=== PATIENT | male | born 1935 | race Caucasian/White ===

== ENCOUNTER 2020-12-05 12:13 | Outpatient (REF) | payer MEDICARE, SELFPAY ==
--- NOTE | 2020-12-05 16:00 | MHC.AU.P13 ---
Adult Audiological Evaluation Date of Visit: 12/05/20 Reason for Appointment: Audiological evaluation due to concern for decreased hearing. Patient notes that he's not hearing as well, especially from the right ear. He denies any changes to his medical history. 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 Ear History: Recent Ear Drainage: Right Ear History of Ear Wax Buildup: Both Ears Bothersome Tinnitus/Ringing/Noises in Ears: Both Ears Blocked/Full Sensation in Ear(s): Right Ear Medical History: Medical History: Headache, High Blood Pressure Hearing Instrument History- Right Ear: Executor Of Estate: [employer] Model: AudThe Smart Baker M50-13T Serial Number: [id number] Battery Size: 13 Repair Warranty: 02/26/2023 Loss and Damage Warranty: 02/26/2023 Dispensed By: [facility] Date of Fittin12/11/2019 Hearing Instrument History- Left Ear: Executor Of Estate: [employer] Model: [employer]vo.comeDiet TV M50-13T Serial Number: [id number] Battery Size: 13 Warranty: 02/26/2023 Loss and Damage Warranty: 02/26/2023 Dispensed By: [facility] Date of Fittin12/11/2019 Otoscopy: Right Ear: Unremarkable Left Ear: Unremarkable Tympanometry: Tympanometry performed due to: Right Ear: Left Ear: Hearing Evaluation: Transducer(s) Used: Insert Earphones, Bone Conduction Method: Conventional Audiometry Stimuli Used: Pure Tones Right Ear: Description of Hearing: Moderate sloping to severe sensorineural hearing loss from 250-8000 Hz. Left Ear: Description of Hearing: Moderate sloping to profound sensorineural hearing loss from 250-8000 Hz. Speech Recognition Threshold (SRT): Method Used: Monitored Live Voice Stimuli Used: Spondee Words Right Ear: 30 dBHL Left Ear: 50 dBHL Word Discrimination: Method: Recorded Lists Word Lists Used: NU-6 Right Ear: 88% at 85 dBHL Left Ear: 80% at 85 dBHL Comparison: Compared to the most recent evaluation: Thresholds have decreased bilaterally. Compared to most recent evaluation: In the right ear, thresholds have worsened by 10-15 dBHL from 1180-6567 Hz. In the left ear, the threshold at 250 Hz has worsened by 20 dBHL. All other thresholds remain stable. Recommendations: Audiological re-evaluation in one year. Hearing aid maintenance performed today. Hearing aid(s) reprogrammed with updated test results. Diagnosis: Primary Diagnosis: H90.3 Bilateral Sensorineural Hearing Loss Services Performed: Comprehensive Audiological Evaluation (CPT 48473) Signature: Provider: Myla Keating, HIGINIO-A
== END 2020-12-05 12:14 | disposition home or self-care (01) ==
LOC: HO.SH 12:13
PROVIDERS: Visit Provider Internal Medicine
DX: H90.3 Sensorineural hearing loss, bilateral (principal)
CPT/HCPCS: 92557

== ENCOUNTER 2021-05-13 15:42 | Outpatient (REF) | payer MEDICARE, SELFPAY ==
[2021-05-13 16:10] LABS: Anion Gap 18 (12-20); Blood Urea Nitrogen 40 mg/dL (9-16); Calcium 8.3 mg/dL (8.4-10.2); Carbon Dioxide 35 mmol/L (22-29); Chloride 87 mmol/L (96-108); Estimated Glomerular Filt Rate 59; Glucose Random 322 mg/dL (60-115); Potassium 3.5 mmol/L (3.3-5.1); Sodium 136 mmol/L (135-145)
[2021-05-13 16:18] LABS: B Type Natriuretic Peptide 388 pg/mL (<100)
== END 2021-05-13 15:43 | disposition home or self-care (01) ==
LOC: HO.HVNA 15:42
PROVIDERS: PCP Internal Medicine; Visit Provider Internal Medicine Cardiovascular Disease
DX: I50.9 Heart failure, unspecified (principal)
CPT/HCPCS: 80048; 83880

== ENCOUNTER 2024-03-13 13:51 | Outpatient (AMB) | payer MEDICARE, SELFPAY ==
--- NOTE | 2024-03-13 13:51 | A.OFFPC_ITS ---
Vital Signs 03/13/24 14:10 Height 5 ft Weight 198 lb BMI 38.7 BP 130/64 Blood Pressure Location Lt brachial Position Sitting Pulse 69 Pulse Source Monitor Intake Visit Reasons: Telehealth Discharge follow up Intake Note: Teleheath visit Discharge follow up. Pt needs referral to Urologist Pt has catheter and needs to have it replaced. Pt needs orders for PT, OT and VNA [facility] Pt needs refill on his medications Setraline, Metoprolol, Potassium, Aspirin, Allopurinol , Torsemide. Allergies No Known Allergies Allergy (Verified 03/13/24 13:59) Medication List - Last Reconciled 03/13/24 by Rachelle Ghosh MD allopurinol 300 mg PO DAILY aspirin 81 mg PO DAILY blood sugar diagnostic ([employer] Verio test strips) As directed budesonide-formoterol 160-4.5 mcg/actuation inhalation docusate sodium 100 mg PO ferrous sulfate 325 mg PO DAILY flash glucose sensor (FreeStyle Breann 2 Sensor kit) As directed gabapentin mg PO insulin glargine (Lantus Solostar U-100 Insulin) 5 units insulin lispro (Humalog KwikPen (U-100) Insulin) 16 units subcut BID metoprolol tartrate 25 mg PO DAILY pantoprazole 40 mg PO DAILY pen needle, diabetic (BD Ultra-Fine Mini Pen Needle) As directed potassium chloride ER 20 mEq PO DAILY rivaroxaban (Xarelto) 20 mg PO DAILY sertraline 25 mg PO DAILY tamsulosin 0.4 mg PO DAILY torsemide 20 mg PO BID Tobacco use date assessed: 03/13/24 Fall risk assessment: 2 + Falls in past year Last assessed Fall Risk: 03/13/24 Dental Screening Dental Screen Date: 03/13/24 Did you have a dental visit in the last 12 months?: No Did you have a dental problem in the last 6 months where you did not have access to dental care?: No Was dental information given to patient?: Patient declined HPI Telehealth Discharge follow up HPI Details Pt presents for [employer] visit Telehealth visit. Pt was discharged from SNF stay for 1 month on 02/23 after hospitalization at [facility] for dementia, recurrent UTIs, indwelling catheter, REBEKAH, HFpEF, IDDM. Pt is home bound and has difficulty ambulating at home. He spent 4 months out of last 6 months in a [facility]. Patient denies chest pain shortness for breath palpitations. His reports fasting blood glucose around 110 after taking 5 units of Lantus. Patient reports intermittent constipation usually controlled with Colace. He has indwelling catheter for the last 6 months and was recommended to see urolo gist. [facility] Surgical History Hx of heart artery stent Family History Father No problems noted. Mother No problems noted. Social History (Updated 03/13/24 @ 15:25 by Rachelle Ghosh MD) Household Members Other:: Lives with , has 1 daughter from previous marriage Housing: House Patient Tobacco Use Status: Former Tobacco user Quit Date: 10 years ago e-Cigarette/Vaping Use: Never Used service: No Current occupational status: retired Cognitive needs: No Hearing needs: Yes Vision needs: Yes Questionnaire PHQ-9 Over the last 2 weeks, how often have you been bothered by any of the following problems? 1. Little interest or pleasure in doing things: not at all 2. Feeling down, depressed, or hopeless: several days 3. Trouble falling or staying asleep, or sleeping too much: several days 4. Feeling tired or having little energy: several days 5. Poor appetite or overeating: not at all 6. Feeling bad about yourself - or that you are a failure or have let yourself or your family down: not at all 7. Trouble concentrating on things, such as reading the newspaper or watching television: not at all 8. Moving or speaking so slowly that other people could have noticed. Or the opposite - being so fidgety or restless that you have been moving around a lot more than usual: not at all 9. Thoughts that you would be better off or of hurting yourself in some way: not at all Total score: 3 Depression Screening Interpretation: Negative Depression Screening Done: Yes Source: Developed by Drs. Yash Villagomez, Taylor Rivera, Adrian Pollock and colleagues, with an educational aldo from [employer]. Thrive Questionnaire Date Thrive assessed: 03/13/24 I am a: Patient What is your living situation today?: I have a steady place to live Within the past 12 months, did the food you bought not last and you didn't have the money to get more?: Never true Within the past 12 months, did you worry whether your food would run out before you got money to buy more?: Never true Do you have trouble paying for medicines?: No Do you have trouble getting transportation to medical appointments?: No Do you have trouble paying your heating and electricity bill?: No Do you have trouble taking care of your child, family member or friend?: No Do you have trouble with day-to-day activities such as bathing, preparing meals, shopping, managing finances, etc.?: No Are you currently unemployed and looking for a job?: No Are you interested in more education?: No THRIVE Score: 0 AUDIT C Alcohol Use Questionnaire (AUDIT-C) 1. How often do you have a drink containing alcohol?: Never 3. How often do you have six or more drinks on one occasion?: Never Total Score: 0 REINA-7 AMB Questionnaire REINA-7 Date REINA - 7 assessed: 03/13/24 Feeling nervous, anxious, or on edge: 0 = Not at all Not being able to stop or control worryin = Not at all Worrying too much about different things: 0 = Not at all Trouble relaxin = Not at all Being so restless that it is hard to sit still: 0 = Not at all Becoming easily annoyed or irritable: 0 = Not at all Feeling afraid as if something awful might happen: 0 = Not at all Total REINA-7 score (0-4 normal; 5-9 mild; 10-14 moderate; 15-21 severe): 0 Source: Developed by Drs. aYsh Villagomez, Taylor Rivera, Adrian Pollock and colleagues, with an educational aldo from [employer]. Review of Systems Const All systems reviewed & are unremarkable except as noted in HPI and below Reports no additional complaints Eyes Reports no additional complaints ENT Reports no additional complaints Card Reports no additional complaints Resp Reports no additional complaints GI Reports no additional complaints Reports no additional complaints Musc Reports no additional complaints Physical exam (Primary Care) Vital Signs: Last Vital Signs Pulse 69 03/13/24 14:10 BP 130/64 03/13/24 14:10 BMI result Body Mass Index 38.7 Tobacco/Smoking Status: Tobacco use Status Tobacco use date assessed 03/13/24 03/13/24 14:14 Patient Tobacco Use Status Former Tobacco user 03/13/24 14:14 e-Cigarette/Vaping Use Never Used 03/13/24 14:14 PHQ-9: PHQ-9 Score PHQ-9: Total score 3 03/13/24 14:35 Depression Screening Interpretation: Negative Thrive Assessment: Date of Thrive Assessment Date Thrive assessed 03/13/24 03/13/24 14:14 Telehealth Telehealth Telehealth Platform: Telephone Location of provider rendering services: practice address Location of patient: address on file Patient Identification confirmed using: Name, : Yes Telehealth method: video Patient verbally consented to treatment: Yes Patient verbally consented to billing insurance company: Yes Patient informed of any privacy concerns related to visit: Yes Minutes spent on Phone/Video with Pt.: 25 Assessment and Plan Assessment & Plan (1) ALEX on CPAP: Code(s): G47.33 - Obstructive sleep apnea (adult) (pediatric) Plan: Continue Cpap (2) COPD (chronic obstructive pulmonary disease): Code(s): J44.9 - Chronic obstructive pulmonary disease, unspecified Plan: Continue Symbicort (3) REBEKAH (acute kidney injury): Code(s): N17.9 - Acute kidney failure, unspecified Plan: Monitor renal function, VNA to draw his labs (4) Pacemaker: Comment: Follow-up with [facility] Code(s): Z95.0 - Presence of cardiac pacemaker (5) Indwelling urethral catheter present: Code(s): Z96.0 - Presence of urogenital implants Plan: Referred to urology (6) CAD (coronary artery disease): Comment: s/p PCI for ostial RCA Code(s): I25.10 - Atherosclerotic heart disease of grindstone coronary artery without angina pectoris Plan: Continue current medications (7) A-fib: Comment: Anticoagulated on Xarelto Code(s): I48.91 - Unspecified atrial fibrillation Plan: Continue current medications follow-up with the Cardiology (8) (HFpEF) heart failure with preserved ejection fraction: Comment: Echo 05/2020 EF 60%, inferior wall hypokinetic, pulmonary artery systolic pressure elevated 40-45 mm Hg Code(s): I50.30 - Unspecified diastolic (congestive) heart failure Plan: Continue current medications (9) Physical deconditioning: Code(s): R53.81 - Other malaise Plan: Start home physical therapy (10) Poor balance: Code(s): R26.89 - Other abnormalities of gait and mobility (11) Urinary incontinence: Code(s): R32 - Unspecified urinary incontinence Plan: Referred to urology (12) Dementia: Code(s): F03.90 - Unspecified dementia, unspecified severity, without behavioral disturbance, psychotic disturbance, mood disturbance, and anxiety Orders: Orders PT Evaluation and Treatment Today I25.10 - Atherosclerotic heart disease of grindstone coronary artery without angina pectoris, I48.91 - Unspecified atrial fibrillation, I50.30 - Unspecified diastolic (congestive) heart failure, N17.9 - Acute kidney failure, unspecified, R26.89 - Other abnormalities of gait and mobility, R53.81 - Other malaise Hemoglobin A1c Today I25.10 - Atherosclerotic heart disease of grindstone coronary artery without angina pectoris, I48.91 - Unspecified atrial fibrillation, I50.30 - Unspecified diastolic (congestive) heart failure, N17.9 - Acute kidney failure, unspecified Vitamin B12 and Folate Today I25.10 - Atherosclerotic heart disease of grindstone coronary artery without angina pectoris, I48.91 - Unspecified atrial fibrillation, I50.30 - Unspecified diastolic (congestive) heart failure, N17.9 - Acute kidney failure, unspecified Comprehensive [place]. Panel Fast Today I25.10 - Atherosclerotic heart disease of grindstone coronary artery without angina pectoris, I48.91 - Unspecified atrial fibrillation, I50.30 - Unspecified diastolic (congestive) heart failure, N17.9 - Acute kidney failure, unspecified Complete Blood Count Auto Diff Today I25.10 - Atherosclerotic heart disease of grindstone coronary artery without angina pectoris, I48.91 - Unspecified atrial fibrillation, I50.30 - Unspecified diastolic (congestive) heart failure, N17.9 - Acute kidney failure, unspecified TSH reflex Free T4 Today I25.10 - Atherosclerotic heart disease of grindstone coronary artery without angina pectoris, I48.91 - Unspecified atrial fibrillation, I50.30 - Unspecified diastolic (congestive) heart failure, N17.9 - Acute kidney failure, unspecified Referrals [facility] Referral G47.33 - Obstructive sleep apnea (adult) (pediatric), I25.10 - Atherosclerotic heart disease of grindstone coronary artery without angina pectoris, I48.91 - Unspecified atrial fibrillation, I50.30 - Unspecified diastolic (congestive) heart failure, J44.9 - Chronic obstructive pulmonary disease, unspecified, N17.9 - Acute kidney failure, unspecified, Z96.0 - Presence of urogenital implants Urology Referral I25.10 - Atherosclerotic heart disease of grindstone coronary artery without angina pectoris, I48.91 - Unspecified atrial fibrillation, I50.30 - Unspecified diastolic (congestive) heart failure, N17.9 - Acute kidney failure, unspecified, N40.0 - Benign prostatic hyperplasia without lower urinary tract symptoms, Z96.0 - Presence of urogenital implants Medications: New allopurinol 300 mg PO DAILY 90 tabs 1RF budesonide-formoterol 160-4.5 mcg/actuation 2 inhalations inhalation BID 10.2 grams 5RF potassium chloride ER 20 mEq PO DAILY 90 tabs 3RF torsemide 20 mg PO BID 180 tabs 3RF rivaroxaban (Xarelto) 20 mg PO DAILY 90 tabs 3RF tamsulosin 0.4 mg PO DAILY 90 caps 3RF miscellaneous medical supply diapers 1 ea miscellaneous TID 100 ea 3RF R32 - Unspecified urinary incontinence miscellaneous medical supply bedside commode 1 ea miscellaneous .qd 1 ea 0RF miscellaneous medical supply diapers 1 ea miscellaneous TID 100 ea 3RF R32 - Unspecified urinary incontinence miscellaneous medical supply bedside commode 1 ea miscellaneous .qd 1 ea 0RF blood sugar diagnostic ([employer] Verio test strips) As directed 100 ea 2RF diabetes mellitus docusate sodium 200 mg (2 x 100 mg) PO BID 360 caps 3RF metoprolol tartrate 12.5 mg (1/2 x 25 mg) PO BID 45 tabs 3RF pantoprazole 40 mg PO DAILY 90 tabs 3RF sertraline 25 mg PO DAILY 90 tabs 3RF Coding Level of Care Code Tele New Pt Level 5 (30533) Diagnoses ALEX on CPAP G47.33 COPD (chronic obstructive pulmonary disease) J44.9 REBEKAH (acute kidney injury) N17.9 Pacemaker Z95.0 Indwelling urethral catheter present Z96.0 CAD (coronary artery disease) I25.10 A-fib I48.91 (HFpEF) heart failure with preserved ejection fraction I50.30 Physical deconditioning R53.81 Poor balance R26.89 Urinary incontinence R32 Dementia F03.90
[2024-03-13 14:10] VITALS: BP 130/64; PULSE 69; BMI 38.7
== END 2024-03-13 15:27 | disposition home or self-care (01) ==
LOC: HO.HMGC 13:51
PROVIDERS: PCP Internal Medicine; Visit Provider Internal Medicine
DX: J44.9 Chronic obstructive pulmonary disease, unspecified (principal); N17.9 Acute kidney failure, unspecified; I48.91 Unspecified atrial fibrillation; I50.30 Unspecified diastolic (congestive) heart failure; F03.90 Unspecified dementia, unspecified severity, without behavioral disturbance, psychotic disturbance, mood disturbance, and anxiety; G47.33 Obstructive sleep apnea (adult) (pediatric); Z95.0 Presence of cardiac pacemaker; Z96.0 Presence of urogenital implants; I25.10 Atherosclerotic heart disease of native coronary artery without angina pectoris; R53.81 Other malaise; R26.89 Other abnormalities of gait and mobility; R32 Unspecified urinary incontinence
CPT/HCPCS: 99203